=== PATIENT | male | born 1995 ===

== ENCOUNTER 2017-06-01 13:01 | Emergency (ER) | payer BC ==
[2017-06-01] MEDS ORDERED: Sodium Chloride 0.9% 1,000 ML IV STA (13:51)
[2017-06-01 14:17] LABS: BASO % 0.5 % (0.0-2.0); EOS % 0.7 % (0.0-4.0); HEMATOCRIT 39.6 % (35.0-51.0); LYMPH # 0.7 K/uL (1.0-4.3); LYMPH % 11.6 % (20.0-40.0); MEAN CELL VOLUME 81.3 fl (80.0-94.0); MEAN CORPUSCULAR HEMOGLOBIN 27.1 pg (27.0-31.0); MEAN CORPUSCULAR HGB CONC 33.3 g/dL (33.0-37.0); MEAN PLATELET VOLUME 8.6 fl (7.2-11.7); MONO # 0.9 K/uL (0.0-0.8); MONO % 14.5 % (0.0-10.0); NEUT # 4.4 K/uL (1.8-7.0); NEUT % 72.7 % (50.0-75.0); NRBC % 0.1 % (0.0-0.0); RED CELL DISTRIBUTION WIDTH 14.7 % (11.5-14.5); WHITE BLOOD COUNT 6.1 K/uL (4.8-10.8)
--- NOTE | 2017-06-01 14:24 | ED PDOC ---
Syncope/Near Syncope/Dizziness Time Seen by Provider: 06/01/17 13:15 Chief Complaint (Nursing): Syncope Chief Complaint (Provider): Syncope History Per: Patient History/Exam Limitations: no limitations Onset/Duration Of Symptoms: Mins (prior to arrival) Current Symptoms Are (Timing): Still Present Additional Complaint(s): Riccardo Caldera is a 22 year old male with no significant past medical history who presents to the ED for evaluation after a syncopal episode prior to arrival. Patient reports feeling weak and dizzy before losing consciousness and hitting his head, sustaining a 3 cm laceration to the middle of his forehead in the process. Patient states he previously saw his PMD due to a cough and cold and was prescribed Promethazine and Zithromax. States he took his medication this morning before going to work, but without eating breakfast. Also states he works at a [employer]. Patient says he lost consciousness, hit his head, sustained the laceration, and a mall officer contacted EMS. Patient denies any other medical complaints at this time. PMD: Non-[facility] Provider Past Medical History Reviewed: Historical Data, Nursing Documentation, Vital Signs Vital Signs: Last Vital Signs Temp 97.0 F L 06/01/17 13:07 Pulse 84 06/01/17 13:07 Resp 16 06/01/17 13:07 BP 115/70 06/01/17 13:07 Pulse Ox 99 06/01/17 13:07 - Medical History PMH: No Chronic Diseases - Surgical History Surgical History: No Surg Hx - Family History Family History: States: Unknown Family Hx - Social History Current smoker - smoking cessation education provided: No Alcohol: None Drugs: Denies - Allergies Allergies/Adverse Reactions: Allergies Allergy/AdvReac Type Severity Reaction Status Date / Time No Known Allergies Allergy Verified 06/01/17 13:07 Review of Systems ROS Statement: Except As Marked, All Systems Reviewed And Found Negative Skin: Positive for: Lesions (3 cm laceration to middle of forehead) Neurological: Positive for: Other (Syncope) Physical Exam - Reviewed Nursing Documentation Reviewed: Yes Vital Signs Reviewed: Yes - Physical Exam Appears: Positive for: Well, Non-toxic, No Acute Distress Head Exam: Positive for: NORMOCEPHALIC. Negative for: ATRAUMATIC (3 cm laceration to middle of forehead) Skin: Positive for: Normal Color, Warm, Dry Eye Exam: Positive for: EOMI, Normal appearance, PERRL Neck: Positive for: Normal, Painless ROM, Supple Cardiovascular/Chest: Positive for: Regular Rate, Rhythm. Negative for: Murmur Respiratory: Positive for: Normal Breath Sounds. Negative for: Respiratory Distress Gastrointestinal/Abdominal: Positive for: Normal Exam, Bowel Sounds, Soft. Negative for: Tenderness Back: Positive for: Normal Inspection. Negative for: L CVA Tenderness, R CVA Tenderness, Vertebral Tenderness Extremity: Positive for: Normal ROM. Negative for: Pedal Edema, Deformity Neurologic/Psych: Positive for: Alert, wire walker II-XII, Oriented (x3), Cerebellar Tests. Negative for: Motor/Sensory Deficits - Laboratory Results Result Diagrams: 06/01/17 14:06 06/01/17 14:06 - ECG O2 Sat by Pulse Oximetry: 99 (RA) Pulse Ox Interpretation: Normal Medical Decision Making Medical Decision Making: Time: 13:46 Initial Impression: Syncope likely vasovagal and laceration Plan: --CT Head w/o contrast --CMP --Troponin I --CBC w/ differential --Portable Chest X-Ray --Tetanus 0.5 IM --Sodium Chloride 0.9% 1,000 ml --Orthostatic BP --Dermabond --Reevaluation Time: 14:15 --Accucheck normal --EKG shows NSR, slight bradycardia at 59 bpm, no ST elevation or other abnormalities. --Patient states he is feeling better now Time: 15:34 CT Head Impression: No acute intracranial abnormalities. No significant findings to account for the clinical presentation. Chest X-Ray: Read by me, no acute abnormalities were found. --All labs were negative and show no acute abnormalities. Upon provider reevaluation patient is feeling better, is medically stable, and requires no further treatment in the ED at this time. Counseling was provided and all questions were answered regarding diagnosis and need for follow up with PMD. There is agreement to discharge plan. Return if symptoms persist or worsen. Scribe Attestation: Documented by Douglas Jefferson acting as a scribe for David Stevens MD. MD Colin Attestation: All medical record entries made by the Scribe were at my direction and personally dictated by me. I have reviewed the chart and agree that the record accurately reflects my personal performance of the history, physical exam, medical decision making, and the department course for this patient. I have also personally directed, reviewed, and agree with the discharge instructions and disposition. Disposition - Clinical Impression Clinical Impression: Vasovagal syncope, Syncope - Patient ED Disposition Is Patient to be Admitted: No Counseled Patient/Family Regarding: Studies Performed, Diagnosis, Need For Followup - Disposition Referrals: [facility] [Outside] [facility] [Outside] David Ornelas MD [Staff Provider] - Disposition: Routine/Home Disposition Time: 15:00 Condition: IMPROVED Additional Instructions: follow up with your primary doctor in 1-2 days for further evaluation and workup return to the ED with any worsening or concerning symptoms Instructions: Syncope (ED) Forms: [employer] ([place]istani)
[2017-06-01 14:28] LABS: ALB/GLOB RATIO 1.3 (1.0-2.1); ALKALINE PHOSPHATASE 52 U/L (38-126); ALT/SGPT 36 U/L (21-72); AST/SGOT 30 U/L (17-59); BLOOD UREA NITROGEN 14 mg/dl (9-20); CALCIUM 9.1 mg/dL (8.4-10.2); CARBON DIOXIDE 28 mmol/L (22-30); CHLORIDE 101 mmol/L (98-107); GFR AFRICAN-AMERICAN > 60; GLUCOSE,RANDOM 87 mg/dL (75-110); POTASSIUM 4.6 MMOL/L (3.6-5.0); SODIUM 141 mmol/l (132-148); TOTAL PROTEIN 7.7 G/DL (6.3-8.2)
--- NOTE | 2017-06-01 15:36 | CT ---
PROCEDURE: CT HEAD WITHOUT CONTRAST. HISTORY: syncope fall COMPARISON: None available. TECHNIQUE: Axial computed tomography images were obtained through the head/brain without intravenous contrast. Coronal and sagittal reconstructed images. Radiation dose: Total exam DLP = not included This CT exam was performed using one or more of the following dose reduction techniques: Automated exposure control, adjustment of the mA and/or kV according to patient size, and/or use of iterative reconstruction technique. FINDINGS: HEMORRHAGE: No intracranial hemorrhage. BRAIN: No mass effect or edema. No atrophy or chronic microvascular ischemic changes. VENTRICLES: Unremarkable. No hydrocephalus. CALVARIUM: Unremarkable. PARANASAL SINUSES: Unremarkable as visualized. No significant inflammatory changes. MASTOID AIR CELLS: Unremarkable as visualized. No inflammatory changes. OTHER FINDINGS: None. IMPRESSION: No acute intracranial abnormalities. No significant findings to account for the clinical presentation.
--- NOTE | 2017-06-01 15:48 | RAD ---
HISTORY: syncope COMPARISON: Chest radiographs 06/18/2009. FINDINGS: LUNGS: No active pulmonary disease. PLEURA: No significant pleural effusion identified, no pneumothorax apparent. CARDIOVASCULAR: Normal. OSSEOUS STRUCTURES: No significant abnormalities. VISUALIZED UPPER ABDOMEN: Normal. OTHER FINDINGS: None. IMPRESSION: No interval acute cardiopulmonary disease appreciated.
[2017-06-01 16:12] VITALS: BP 120/78; PULSE 78; RESP 17; TEMP 97; O2SAT 99
== END 2017-06-01 16:12 | disposition home or self-care (01) ==
LOC: H.ER 13:01
DX: R55 Syncope and collapse (principal); S01.81XA Laceration without foreign body of other part of head, initial encounter; W19.XXXA Unspecified fall, initial encounter; Y92.89 Other specified places as the place of occurrence of the external cause
CPT/HCPCS: 70450; 71010; 80053; 82948; 84484; 85025; 90471; 90715; 99284; J7040